=== PATIENT | female | born 1955 | race African-American/Black ===

== ENCOUNTER → 2017-01-22 | Outpatient (CLI) | payer OTHER ==
[~2017-01-22] VITALS: Ht 175.3 cm; Wt 68.9 kg
[~2017-01-22] MED LIST: CYANOCOBAL1000 MCG/2 IM; ERGOCALCIF50000 UNIT PO; ONCE DAILY1 EACH PO; SYNTHROID50 MCG PO; no home med
== END | disposition home or self-care (01) ==
LOC: AMB 10:57
PROC: 0DB68ZX Excision of Stomach, Via Natural or Artificial Opening Endoscopic, Diagnostic (ICD-10-PCS; principal; 2017-01-22)
DX: K29.70 Gastritis, unspecified, without bleeding (principal); D51.0 Vitamin B12 deficiency anemia due to intrinsic factor deficiency; D70.0 Congenital agranulocytosis; R53.83 Other fatigue; Z90.49 Acquired absence of other specified parts of digestive tract
CPT/HCPCS: 88305; 88342 TC